=== PATIENT | female | born 1980 | race Hispanic/Latino ===

== ENCOUNTER 2017-05-11 10:55 | Inpatient (IN) | payer OTHER ==
[~2017-05-11] VITALS: Ht 165.1 cm; Wt 109.0 kg
--- NOTE | 2017-05-13 07:42 | PR ---
[facility] [place] [facility] [address] [facility] [place], [place] [address] Signed PP Progress Notes Datetime Report Generated by EDILMA: 05/13/2017 07:42 SUBJECTIVE: [id number] Pain: Within normal limits Vital Signs: [id number] Vital Signs: Reviewed; Within Normal Limits EXAM: [id number] Cardiovascular: Not Done Respiratory: Not Done Abdomen/Uterus: Abnormal Lochia: Normal Vulva/Perineum: Not Done Breasts: Not Done CVA Tenderness: Not Done Extremities: Normal Incision: Not Applicable Progress: Not Applicable Exam Comments: Fundus firm, NT @ U-1. H/H 9.7/28.3, WBC 10.3, plat 173k IMPRESSION/PLAN/PROCEDURES: [id number] Impression: Normal progression Plan: Discharge Procedures: None Progress Notes: Doing well. She desires D/C today. Signing Physician: Nina Alejandre MD CC: *Electronically Signed* 05/13/17 0742 NINA ALEJANDRE MD PATIENT NAME: MARIALUISA MALLOY PROGRESS NOTE DATE OF : 80 PHYSICIAN: NINA ALEJANDRE MD RPT #: [id number] REPORT IS CONFIDENTIAL AND NOT TO BE RELEASED WITHOUT AUTHORIZATION
== END 2017-05-13 15:10 | disposition home or self-care (01) | DRG 774 ==
LOC: FBCO → FBC 11:15 → FBCO 05-20 09:47
PROVIDERS: ADMIT Obstetrics & Gynecology
PROC: 3E0R3BZ Introduction of Anesthetic Agent into Spinal Canal, Percutaneous Approach (ICD-10-PCS; 2017-05-11)
PROC: 00HU33Z Insertion of Infusion Device into Spinal Canal, Percutaneous Approach (ICD-10-PCS; 2017-05-11)
PROC: 10E0XZZ Delivery of Products of Conception, External Approach (ICD-10-PCS; principal; 2017-05-12)
PROC: 0UQMXZZ Repair Vulva, External Approach (ICD-10-PCS; principal; 2017-05-12)
DX: O42.02 Full-term premature rupture of membranes, onset of labor within 24 hours of rupture (principal); O10.92 Unspecified pre-existing hypertension complicating childbirth; O70.0 First degree perineal laceration during delivery; Z3A.38 38 weeks gestation of pregnancy; Z37.0 Single live birth; O69.81X0 Labor and delivery complicated by cord around neck, without compression, not applicable or unspecified; E88.81 Metabolic syndrome and other insulin resistance; O99.214 Obesity complicating childbirth; E28.2 Polycystic ovarian syndrome
CPT/HCPCS: 01960; 36415; 85027; J2590; J7120

== ENCOUNTER 2020-10-23 05:55 | Day surgery (SDC) | payer OTHER ==
[~2020-10-23] VITALS: Ht 165.1 cm; Wt 104.5 kg
[~2020-10-23 05:55] MED LIST: CAL MAG ZINC +1 EAC1 PO; PRENATE ELITE1 EAC2 PO
--- NOTE | 2020-10-23 08:51 | NUR ---
PT KIND OF QUIET, BUT ALERT, ORIENTED AND SUPPORTED BY HER ANDREI. ANDREI IS RATHER ANXIOUS, SPENT TIME REASSURING BOTH. HAVING TO WAIT FOR LAB RESULTS. 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 ENCOURAGEMENT AND BLESSING GIVEN, WILL FOLLOW NEEDED
--- NOTE | 2020-10-23 09:44 | NUR ---
10/23/20 0944 Svitlana Suarez 0930-PATIENT ARRIVED TO PACU ON 10L MASK RN DOING JAW THRUST TO MAINTAIN OPEN AIRWAY. PATIENT DOES SOUND STRIDOR. ALECIA RIZZO ORDERED RACEMIC EPI NEBULIZER. PATIENT NONAROUSABLE. SR. IVF INFUSING. DRESSINGS TO ABDOMEN CDI. 0935-PATIENT MAINTAINING OWN AIRWAY NONAROUSABLE RR EVEN. RACEMIC EPI NEBULIZER GOING. 0940-RACEMIC EPI NEBULIZER FINISHED. PATIENT AROUSES TO VERBAL STIMULI OPENING EYES ORAL AIRWAY REMOVED. ON 6L MASK RR EVEN. DENIES PAIN OR NAUSEA REMAINS VERY DROWSY DOZES BACK TO SLEEP. LUNG SOUNDS CLEAR.
--- NOTE | 2020-10-23 10:14 | NUR ---
PT IS BACK TO DS FROM PACU. SHE IS FEELING GOOD, NO PAIN OR NAUSEA. ONLY COMPLAINT IS BEING COLD. SWATI HUGGER TURNED ON. CALL LIGHT WITHIN REACH. PT WOULD LIKE SOME JELLO. WATER ON BEDSIDE TABLE. DC CRITERIA IS REIVEWED WITH PT AGAIN FROM THIS MORNING. NO ADDITIONAL NEEDS.
[2020-10-23] MEDS ORDERED: PERCOCET 5-3251 EACH PO (10:32)
[2020-10-23] MEDS ORDERED: IBUPROFEN800 MG PO (10:32)
[2020-10-23] MEDS ORDERED: ONDANSETRON ODT8 MG PO (10:33)
[2020-10-23] MEDS ORDERED: HYDROCHLOROTHIA25 MG PO (10:34)
[2020-10-23] MEDS ORDERED: SENNA8.6 MG PO (10:34)
--- NOTE | 2020-10-23 11:16 | NUR ---
PT TOLERATING JELLO AND SIPS OF WATER. SHE WOULD LIKE TO WAIT A LITTLE LONGER BEFORE TRYING TO GET UP TO USE THE RESTROOM. IS AT THE BEDSIDE. CALL LIGHT WITHIN REACH. NO ADDITIONAL NEEDS.
--- NOTE | 2020-10-23 12:16 | NUR ---
LE 1200: PT IS ASSISTED UP OOB WITH STANDBY ASSIST. SHE IS ABLE TO AMBULATE TO THE BATHROOM AND BACK. SHE VOIDS 900MLS OF PALE YELLOW URINE. SHE REPORTS FEELING NAUSEATED AFTER GOING TO THE BATHROOM. SHE WOULD LIKE TO REST FOR A LITTLE BIT BEFORE GETTING READY TO GO HOME.
--- NOTE | 2020-10-23 13:08 | NUR ---
MARC 1245: PT AND ARE GIVEN VERBAL DC INSTRUCTIONS. THEY BOTH VERBALIZE UNDERSTANDING. QUESTIONS ARE ASKED AND ANSWERED. THE PT IS TAKEN TO PERSONAL CAR VIA WC, SHE IS ABLE TO TRANSFER HERSELF FROM WC TO PERSONAL CAR.
--- NOTE | 2020-10-24 15:34 | PATH ---
[facility] [address] [place], [place] [address] Signed SPECIMEN(S): A LEFT TUBE AND OVARY DERMOID SPECIMEN SOURCE: A. LEFT TUBE AND OVARY DERMOID CLINICAL HISTORY: Large pelvic mass, presumably related to left ovary. Laparoscopy with LSO. FINAL PATHOLOGIC DIAGNOSIS: Ovary and fallopian tube, left salpingo-oophorectomy: - Ovary: Mature cystic teratoma, cystic follicles. - Fallopian tube: Paratubal cysts. NAL:cml:C2NR MICROSCOPIC EXAMINATION: Histologic sections of all submitted blocks are examined by light microscopy. These findings, together with the gross examination, support the pathologic diagnosis. GROSS DESCRIPTION: The specimen, labeled "AM," and designated on the requisition "left tube and ovary dermoid," is received in formalin and consists of a focally disrupted (1.5 x 0.7 cm) pink-balderas to yellow-balderas cystic ovary (15.0 x 11.8 x 2.7 cm) with attached pink-balderas fimbriated fallopian tube segment (4.9 cm in length and ranging in diameter from 0.5-0.7 cm) with attached paratubal cysts (ranging in size from 0.2-0.7 cm in greatest dimension). The outer surface of the ovary is inked blue and the ovary is sectioned to reveal a straw-colored serous fluid, a portion of yellow-balderas, grumous material with hair (7.2 x 6.5 x 2.5 cm in aggregate) and a pink to brown-balderas, smooth to slightly roughened cyst wall that ranges in thickness from 0.1-1.4 cm. Asw/Asuw Tactical Air Controller sections are submitted as follows: (A1) Fallopian tubes (A2-A6) Cyst wall AC (under the direct supervision of a pathologist) The Gross Description was prepared using a voice recognition system. The report was reviewed for accuracy; however, sound-alike word errors, addition and/or deletions may occur. If there is any question about this report, please contact Client Services. PATIENT NAME: MARIALUISA VILLEGAS PATHOLOGY DATE OF : [birth year] REPORT #: [id number] PHYSICIAN: TAMIKA PATHOLOGY PCP: MOUNIKA PANIAGUA MD REPORT IS CONFIDENTIAL AND NOT TO BE RELEASED WITHOUT AUTHORIZATION [facility] [address] [place] [id number] Signed PERFORMING LABORATORY: The [facility] component [facility] [place] [address] (Hvac Service Technician: Jesika Conte MD; CLIA# [id number]). Professional interpretation was performed by [facility], [address] [address] (CLIA# [id number]). Diagnostician: Ailyn Farley MD Pathologist Electronically Signed 10/24/2020 Copies: ~ PATIENT NAME: MARIALUISA VILLEGAS PATHOLOGY DATE OF : [birth year] REPORT #: [id number] PHYSICIAN: TAMIKA DUMONT PCP: MOUNIKA PANIAGUA MD REPORT IS CONFIDENTIAL AND NOT TO BE RELEASED WITHOUT AUTHORIZATION
--- NOTE | 2020-10-30 14:03 | PATH ---
[facility] [address] [place], [place] [address] Signed ORDERING PHYSICIAN: Nina Alejandre MD PATIENT NAME: MG VILLEGASABEL GENDER: F : 1980 SPECIMEN(S): A PELVIC WASHING GROSS DESCRIPTION: 220 ML OF CLOUDY, FAINT RED FLUID IN CYTOLYT (RECEIVED IN 2 VIALS) CLINICAL HISTORY: NO CLINICAL DATA PROVIDED LABORATORY PREPARATIONS: 1 MONOLAYER, 1 CELL BLOCK CYTOLOGIC INTERPRETATION: Pelvic washing: Negative for malignant cells. DESCRIPTION: One monolayer slide and one cell block slide were examined and demonstrate mesothelial cells, inflammatory cells, and strips of benign appearing epithelium with tubal-type morphology. The cell block demonstrates a focal fragment of hypocellular stromal type tissue with bland spindle cells and mixed chronic inflammatory cells. Immunohistochemical stains (with appropriately staining controls) were performed. The bland strips of epithelial cells are weakly PAX8 positive, supporting gynecologic origin and thus compatible with endosalpingiosis. Calretinin and D2-40 highlight mesothelial cells. The fibrous tissue is favored to be related to fibrous adhesions; a beta-catenin immunohistochemical stain is pending and will be reported in an addendum. No features of malignancy are identified. As part of [facility]' Quality Improvement Program, this case was reviewed by another member of our pathology staff. NAL:joseluis TECHNICAL NOTES: Immunohistochemical studies were performed on this case with the appropriate controls. This test was developed and its performance characteristics determined by [facility]. It has not been cleared or approved by the U.S. Food and Drug Administration. The FDA had PATIENT NAME: MARIALUISA VILLEGAS PATHOLOGY DATE OF : [birth year] REPORT #: [id number] PHYSICIAN: TAMIKA DUMONT PCP: MOUNIKA PANIAGUA MD REPORT IS CONFIDENTIAL AND NOT TO BE RELEASED WITHOUT AUTHORIZATION [facility] [address] [place] [id number] Signed determined that such clearance or approval is not necessary. This test is used for clinical purposes. It should not be regarded as investigational or for research. [facility] is certified under the Clinical Laboratory Improvement Amendments of 1988 (CLIA) as qualified to perform high complexity clinical laboratory testing. Correlate with concurrent surgical report ([id number]). SPECIMEN ADEQUACY: Satisfactory for Evaluation PERFORMING LABORATORY: Professional [facility], [address] [address] (Manugrapher: Ailyn Farley MD; CLIA# [id number]). Technical preparation was performed by [facility], [address] [place] [address] (Manugrapher: Jeb Chavarria D.O.; CLIA#: [id number]). Diagnostician: [facility]YON [facility] [employer] And Skip Car Operator Diagnostician: Ailyn Farley MD Pathologist Electronically Signed 10/29/2020 Copies: ~ PATIENT NAME: MG VILLEGASABEL PATHOLOGY DATE OF : [birth year] REPORT #: [id number] PHYSICIAN: TAMIKA DUMONT PCP: MOUNIKA PANIAGUA MD REPORT IS CONFIDENTIAL AND NOT TO BE RELEASED WITHOUT AUTHORIZATION
--- NOTE | 2020-11-12 22:51 | OR ---
[facility] [address] [place], [place] [address] Signed DATE OF OPERATION: 10/23/2020 SURGEON: Nina Alejandre MD PIER WORKER: ZACKERY Chaves DO PREOPERATIVE DIAGNOSIS: Adnexal mass POSTOPERATIVE DIAGNOSIS: Left adnexal mass, dermoid. PROCEDURE: Laparoscopy with left salpingo-oophorectomy. ANESTHESIA: General ET. ESTIMATED BLOOD LOSS: 25 mL. DRAINS: None. INDICATIONS AND FINDINGS: The patient is a 40-year-old female 3, para 3, who was found to have a large abdominal mass which was presumably from the left ovary on CT scan. On her exam, there was a large mass palpable in the mid abdomen just below the umbilicus, but it was freely mobile across the entire abdomen. At the time of laparoscopy, it was clearly the left ovary. It was very smooth, but quite large approximately 15 cm. The right tube and ovary appeared normal. There was a small amount of scarring in the posterior cul-de-sac, but otherwise the pelvis was normal. At the time of removal of the ovary, it was obvious this was a dermoid. DESCRIPTION OF PROCEDURE: The patient was prepped and draped in the dorsal lithotomy position. Weighted speculum was placed. The anterior lip of the cervix was visualized and grasped with single-tooth tenaculum. The Jelena cannula was then placed. The speculum was removed and attention was directed above. A supraumbilical incision was made in the midline after injection Electronically Signed By: NINA ALEJANDRE MD 11/12/20 2115 PATIENT NAME: MARIALUISA VILLEGAS OPERATIVE REPORT DATE OF : [birth year] REPORT #: [id number] PHYSICIAN: NINA ALEJANRDE MD PCP: MUONIKA PANIAGUA MD REPORT IS CONFIDENTIAL AND NOT TO BE RELEASED WITHOUT AUTHORIZATION [facility] [address] [place], [place] [address] Signed with 0.5% Marcaine plain. It was made in this area because of the size of the mass. An incision was made with a knife, and each layer was serially elevated and incised until the fascia was opened and identified. The patient is morbidly obese. Stay sutures were placed on the fascia. The peritoneum was then opened bluntly. The Agustin cannula was then placed and tied into place after the balloon was inflated. The pelvis was visualized and washings were obtained. The secondary ports were placed slightly above the level of the umbilicus bilaterally and fairly far laterally given the size of the mass. Each of these areas was injected with Marcaine, incision made with a knife and placed under direct vision. The left-sided port was a 5 mm port and the right was a Veress needle followed by expanding port. Following this, the pelvis was fully evaluated and the decision was made to proceed with left salpingo-oophorectomy. The patient's left utero-ovarian pedicle could be easily visualized and this was cauterized multiple times using the LigaSure [place] device and then divided. This was taken down to the round ligament on that side, but the round ligament was not divided. Following this, the broad ligament was incised which allowed for manipulation of the mass. At this point, the mass could be flipped and the infundibulopelvic ligament identified. The infundibulopelvic ligament was cauterized multiple times and divided. The remaining broad connection was divided and the ovary was free in the pelvis. An Endoloop of 0 PDS was then placed over the left infundibulopelvic ligament to further establish hemostasis. The ureter could be seen and it was far below the infundibulopelvic ligament. Following this, the ovary was placed into a bag with quite a bit of difficulty. The ovary was eventually placed into the bag and brought up to the center port. The Agustin was removed. The size of the mass dictated this incision be enlarged. The ovary was brought into view with the bag. An incision was made over the surface of the ovary. Almost immediately, there was fluid consistent with sebum extruding from the cyst. This was suctioned out as quickly as possible and gauze was also used to avoid further contamination of the abdominal cavity. The ovary was drained of quite a bit of material and at that point, the ovary could be pulled out in the bag through the incision. Following this, the incision and the abdomen was irrigated copiously to remove any contamination present. Because of the extended incision, the fascia was reidentified and the upper portion was closed with a running suture of 0 Vicryl. The Agustin cannula was then replaced and the balloon inflated. The abdomen and pelvis were irrigated with approximately 6000 mL of fluid. The fluid appeared to be completely clear at the conclusion of irrigation. The pelvis was re-evaluated and good hemostasis was again noted. The procedure was then terminated. The instruments removed from the abdomen after allowing as much CO2 as possible to escape. The fascial incision of the umbilicus was reidentified and the remaining incision closed with a running suture of 0 Vicryl. Because of the depth of the abdominal wall, deep sutures were placed also using 0 Vicryl. The skin incisions were closed with subcuticular sutures of 3-0 Vicryl Rapide. Deep sutures were required on the patient's right incision as well. Following this, good hemostasis was noted at the abdominal incisions after closure. Attention was directed down below and the Rodríguez catheter placed at the beginning of the Electronically Signed By: NINA ALEJANDRE MD 11/12/20 4264 PATIENT NAME: MARIALUISA VILLEGAS OPERATIVE REPORT DATE OF : [birth year] REPORT #: [id number] PHYSICIAN: NINA ALEJANDRE MD PCP: MOUNIKA PANIAGUA MD REPORT IS CONFIDENTIAL AND NOT TO BE RELEASED WITHOUT AUTHORIZATION [facility] [address] [place], [place] [address] Signed case was removed. The instruments removed from the cervix. The cervix was visualized. There was no evidence of any ongoing bleeding. The patient was taken to the recovery room in good condition. All sponge and needle counts were correct. Nina Alejandre MD PJW/MODL /[id number] cc: Dr. VIZCARRA [place] Copies: ~ Electronically Signed By: NINA ALEJANDRE MD 11/12/20 2251 PATIENT NAME: MARIALUISA VILLEGAS OPERATIVE REPORT DATE OF : [birth year] REPORT #: [id number] PHYSICIAN: NINA ALEJANDRE MD PCP: MOUNIKA PANIAGUA MD REPORT IS CONFIDENTIAL AND NOT TO BE RELEASED WITHOUT AUTHORIZATION
== END 2020-10-23 12:50 | disposition home or self-care (01) ==
LOC: DS 05:55 → EDSTATUS 06:45 → DS 12:50
PROVIDERS: ATTEND Obstetrics & Gynecology
PROC: 0UT64ZZ Resection of Left Fallopian Tube, Percutaneous Endoscopic Approach (ICD-10-PCS; 2020-10-23)
PROC: 0UT14ZZ Resection of Left Ovary, Percutaneous Endoscopic Approach (ICD-10-PCS; principal; 2020-10-23 06:45)
DX: D27.1 Benign neoplasm of left ovary (principal); N83.8 Other noninflammatory disorders of ovary, fallopian tube and broad ligament; I10 Essential (primary) hypertension; E66.01 Morbid (severe) obesity due to excess calories; Z68.38 Body mass index [BMI] 38.0-38.9, adult
CPT/HCPCS: 00840; 80053; J0330; J0360; J1100; J1644; J1885; J2250; J2405; J2704; J2765; J3010; J7121